=== PATIENT | female | born 1960 | race Caucasian/White ===

== ENCOUNTER 2019-07-08 16:23 | Inpatient (IN) | payer MEDICAID, MEDICARE ==
[2019-07-08] MEDS ORDERED: Lactated Ringers 1000 ML Bag* 1,000 ML IV ONE (19:23)
--- NOTE | 2019-07-08 19:31 | HP ---
History of Present Illness - History of Present Illness Reason for Visit: Sepsis History of Present Illness: 58 yo F who was recently diagnosed with UTI 2 weeks ago and put on antibiotics ( she can't remember the name) presented to [facility] today for progressive dizziness, lightheadedness, generalized weakness, nausea and diarrhea. She states that she feels like she did the last time she had Clostridium difficile colitis. At [facility] ED she was tachycardic to 113 and hypotensive to 70/38. She was bolused 3.7L IVF. Physical exam notable for moderate distress, tachycardia and generalized abdominal tenderness to palpation. CT Abdomen showed bibasilar infiltrates and no intraabdominal acute findings. Started on Rocephin and Azithromycin. Lactic acid 4.3, improving to 3.0. Cr 2.4. LFTs mildly elevated. WBC 17.9. UA negative. Transferred to [facility] for further care. - Past Medical History Gastrointestinal: Constipation, GERD, Irritable bowel disease, Other - Abdominal pain, anal fissure, C Diff colitis Psych: Anxiety, Schizophrenia, Other - PTSD Musculoskeletal: Chronic low back pain Renal/: Other - urinary retention Endocrine: Other - Thyroid cyst - Past Surgical History Past Surgical History: Appendectomy, Cholecystectomy, Hysterectomy, Other - Lumbar laminectomy, Bladder sling, lipoma excision - Past Family History Family History: Cancer, Other - COPD - Past Social History Smoke: 1 pack per day Alcohol: None Drugs: None - Health Maintenance Health Maintenance: Mammogram, Colonoscopy Review of Systems - Medications/Allergies Medications: Current Medications Lactated Ringer's (Lactated Ringers 1000 Ml Bag*) 1,000 mls @ 80 mls/hr IV ONCE ONE Stop: 07/09/19 07:52 Exam - Exam Vital Signs: HR 106. BP 87/68. RR 11. SpO2 96 General: Alert, Oriented x3, No acute distress HEENT: Atraumatic, PERRLA, EOMI Lungs: Clear to auscultation, Normal air movement Cardiovascular: Regular rate, Normal S1, Normal S2, No murmurs Abdomen: Soft, No tenderness Extremities: No cyanosis, No edema Neurological: Normal gait, Normal speech Psych/Mental Status: Mental status NL, Mood NL Assessment/Plan - Assessment/Plan Assessment: 58 yo F transferred from [facility] with sepsis associated hypotension, bilateral infiltrates on CXR concerning for pneumonia and nausea and diarrhea. Plan: Hospital Diagnoses: #1: Sepsis associated hypotension #2: Bilateral community acquired pneumonia #3: Lactic acidosis #4: Gastroenteritis Cardiovascular: (1) Sepsis associated hypotension; (2) Sinus tachycardia -- HR 104-106 -- SBP 87-96 -- Telemetry -- IVF hydration Home meds: None Pulmonary: (1) bilateral community acquired pneumonia -- RR 11-22 -- sats 93-96 -- CXR: left lower lobe infiltrate and effusion -- CT chest: bibasilar infiltrates consistent with pneumonia -- abx as bellow Home meds: None Gastrointestinal: (1) Acute gastroenteritis vs colitis; (2) Mild elevations in LFTs; (3) hx of GERD; (4) chronic constipation; (5) hx of CDiff colitis -- LFTs Tbili 0.7 ALK 119, follow trend AST 57, follow trend ALT 65, follow trend -- amylase 37 -- diet: general -- bowel regimen: none -- ulcer prophylaxis: not indicated at this time -- stool and CDiff cultures ordered Home meds: None Endocrine: (1) hx of thyroid cyst -- monitor BGs Home meds: None Renal: (1) Prerenal azotemia -- UOP: not yet recorded -- Cr 2.4, hydrating, follow trend -- Lytes Na 140 K 4.1 Ca 8.9 Mag ordered with AM Labs Phos ordered with AM labs -- IVF: LR @ 80 ml/hr -- received 4L at [facility] and 1L from EMS Home meds: None Infectious disease: (1) Sepsis; (2) bilateral community acquired pneumonia; (3 ) Acute gastroenteritis vs colitis; (4) hx of CDiff colitis -- Tmax pending -- WBC 17.19 -- Micro 07/08 blood ordered UA negative sputum ordered stool ordered CDiff ordered flu negative MRSA ordered -- ABX Rocephin Azithromycin Home meds: None Neurologic: (1) Chronic schizophrenia; (2) Chronic back pain; (3) PTSD -- Resume home meds -- Melatonin for sleep Home meds: Cyclobenzaprine, Klonopin, Gabapentin, Benadryl Hematological: No acute issues -- Hgb 15.5 -- Plt 248 -- Coags INR 1.02 PTT 25.2 -- DVT prophylaxis: SQ Heparin Home meds: None Metabolic: (1) Lactic acidosis -- Lactic acid 3.0 from 4.3, hydrating, follow trend Home meds: None Other: No acute issues Home meds: None Deep vein thrombosis prophylaxis: SQ Heparin Dietary: not indicated at this time Condition: serious Prognosis: good Code status: full Disposition: admit to ICU Cumulative time spent in the care of this patient (excluding any procedure time) : at least 50 minutes. Patient care included clinical interview (with patient and/or family), bedside exam of the patient, review of labs, x-rays, and other ancillary data, coordination of (respiratory, nursing care, review of patient's records, discussion regarding patients management with involved consultants, primary physician, pharmacists, and other healthcare personnel (dietary, case management , physical/occupational therapy etc.)
[2019-07-08] MEDS: Gabapentin CAP(*) 300 MG PO SCH (21:35)
[2019-07-08] MEDS: clonazePAM TAB(*) 1 MG PO SCH (21:35)
[2019-07-08] MEDS: Melatonin 3 MG TAB PO SCH (21:35)
[2019-07-08] MEDS: Heparin VIAL(*) 5000 UNITS/ML VIAL (FIVE THOUSAND) SUBCUT SCH (21:35)
[2019-07-08] MEDS: Cyclobenzaprine TAB* 10 MG PO PRN (21:35)
[2019-07-08 22:15] LABS: Urine Appearance Cloudy; Urine Bilirubin Negative (Negative); Urine Blood Negative (Negative); Urine Color Yellow; Urine Glucose Negative (Negative); Urine Ketones Negative (Negative); Urine Nitrite Negative (Negative); Urine Protein Negative (Negative); Urine Specific Gravity 1.015 (1.010-1.030); Urine Urobilinogen Negative (Negative)
[2019-07-09] MEDS: Heparin VIAL(*) 5000 UNITS/ML VIAL (FIVE THOUSAND) SUBCUT SCH ×3 (06:07→22:35)
[2019-07-09 06:36] LABS: Hematocrit 39 % (35-47); Hemoglobin 13.2 g/dL (12.0-16.0); Mean Corpuscular HGB Conc 34 g/dL (31-36); Mean Corpuscular Hemoglobin 32 pg (27-31); Mean Corpuscular Volume 96 fL (80-97); Platelet Count 173 10^3/uL (150-450); Red Cell Distribution Width 14 % (10-15); White Blood Count 13.1 10^3/uL (3.5-10.8)
[2019-07-09 06:54] LABS: ALT 40 U/L (7-52); Albumin 2.7 g/dL (3.2-5.2); Albumin/Globulin Ratio 1.1 (1-3); Alkaline Phosphatase 91 U/L (34-104); BUN/Creatinine Ratio 19.6 (8-20); Blood Urea Nitrogen 22 mg/dL (6-24); CO2 Carbon Dioxide 21 mmol/L (22-32); Calcium 7.8 mg/dL (8.6-10.3); EGFR African American 60.9 (>60); EGFR Non-African American 50.3 (>60); Globulin 2.4 g/dL (2-4); Glucose 71 mg/dL (70-100); Phosphorus 2.9 mg/dL (2.5-5.0); Sodium 141 mmol/L (135-145); Total Protein 5.1 g/dL (6.4-8.9)
[2019-07-09 06:59] LABS: Chloride 114 mmol/L (101-111)
[2019-07-09 07:01] LABS: Anion Gap 6 mmol/L (2-11)
[2019-07-09] MEDS ORDERED: Ibuprofen TAB* 200 MG PO ONE (07:06)
[2019-07-09 08:43] LABS: Magnesium 1.6 mg/dL (1.9-2.7); Potassium Redraw 4.1 mmol/L (3.5-5.0)
[2019-07-09 09:10] LABS: Potassium 3.9 mmol/L (3.5-5.0)
[2019-07-09] MEDS: Azithromycin 500 mg/250 ml NS 500 MG/250 ML BAG IVPB SCH (09:35)
[2019-07-09] MEDS: Gabapentin CAP(*) 300 MG PO SCH ×2 (09:36→21:25)
[2019-07-09] MEDS: Cyclobenzaprine TAB* 10 MG PO PRN (09:36)
[2019-07-09] MEDS: clonazePAM TAB(*) 0.5 MG PO SCH (09:36)
[2019-07-09] MEDS: cefTRIAXone(*) 1 GM in NS 0.9% 50 ML* 50 ML IVPB SCH (10:36)
[2019-07-09] MEDS ORDERED: NS 0.9% 1000 ML** 1,000 ML IV ONE (12:24)
--- NOTE | 2019-07-09 12:27 | PN ---
Date of Service: 07/09/19 Critical Care Services: c.difficile + and with diarrhea last night --hx of c.difficile 2 years ago lacatates increasing Vital Signs: Temp Pulse Resp BP SpO2 FiO2 97.5 F 98 29 85/69 98 07/09/19 11:44 07/09/19 10:30 07/09/19 10:30 07/09/19 10:30 07/09/19 10:30 Physical Exam: Gen: NAD. AO times 3, Heart: RRR, Lungs: Decreased Breath sounds, GI: +BSs, soft, NTP. No rebound or guarding. Neuro: No focal deficits. Extremities: No edema. Fluid Balance (Past 24 Hours): I= O= Net Intake & Output 07/07/19 07/08/19 07/09/19 07/10/19 06:59 06:59 06:59 06:59 Intake Total 1286 120 Output Total 1205 340 Balance 81 -220 Weight 110 lb Intake: IV Fluids 1286 LR 1286 Oral 0 120 Output: Urine 200 Dor[place] 705 140 Liquid Stool 500 Other: Date of Last Bowel 07/09/19 07/09/19 Movement # Bowel Movements 3 Estimated Stool Amount Large Large Labs: Laboratory Results - last 24 hr 07/08/19 07/08/19 07/09/19 22:01 22:01 06:14 WBC 13.1 H RBC 4.10 Hgb 13.2 Hct 39 MCV 96 MCH 32 H MCHC 34 RDW 14 Plt Count 173 MPV 9.0 Sodium Potassium Chloride Carbon Dioxide Anion Gap BUN Creatinine Est GFR ( Amer) Est GFR (Non-Af Amer) BUN/Creatinine Ratio Glucose Lactic Acid 2.1 H* Calcium Phosphorus Magnesium Total Bilirubin AST ALT Alkaline Phosphatase Total Protein Albumin Globulin Albumin/Globulin Ratio Urine Color Yellow Urine Appearance Cloudy Urine pH 5.0 Ur Specific Yancey 1.015 Urine Protein Negative Urine Ketones Negative Urine Blood Negative Urine Nitrate Negative Urine Bilirubin Negative Urine Urobilinogen Negative Ur Leukocyte Esterase Negative Urine Glucose Negative 07/09/19 07/09/19 07/09/19 06:14 06:14 07:37 WBC RBC Hgb Hct MCV MCH MCHC RDW Plt Count MPV Sodium 141 Potassium TNP TNP Chloride 114 H Carbon Dioxide 21 L Anion Gap 6 BUN 22 Creatinine 1.12 H Est GFR ( Amer) 60.9 Est GFR (Non-Af Amer) 50.3 BUN/Creatinine Ratio 19.6 Glucose 71 Lactic Acid 3.7 H* Calcium 7.8 L Phosphorus 2.9 Magnesium TNP TNP Total Bilirubin 0.30 AST TNP TNP ALT 40 Alkaline Phosphatase 91 Total Protein 5.1 L Albumin 2.7 L Globulin 2.4 Albumin/Globulin Ratio 1.1 Urine Color Urine Appearance Urine pH Ur Specific Yancey Urine Protein Urine Ketones Urine Blood Urine Nitrate Urine Bilirubin Urine Urobilinogen Ur Leukocyte Esterase Urine Glucose 07/09/19 07/09/19 08:28 08:54 WBC RBC Hgb Hct MCV MCH MCHC RDW Plt Count MPV Sodium Potassium 4.1 3.9 Chloride Carbon Dioxide Anion Gap BUN Creatinine Est GFR ( Amer) Est GFR (Non-Af Amer) BUN/Creatinine Ratio Glucose Lactic Acid Calcium Phosphorus Magnesium 1.6 L Total Bilirubin AST 45 H 47 H ALT Alkaline Phosphatase Total Protein Albumin Globulin Albumin/Globulin Ratio Urine Color Urine Appearance Urine pH Ur Specific Yancey Urine Protein Urine Ketones Urine Blood Urine Nitrate Urine Bilirubin Urine Urobilinogen Ur Leukocyte Esterase Urine Glucose Impression: c.difficile dehydration PNA? Plan: add Vanco and Flagyl for C.Difficile increase IVF"s, keep + balance f/u CXR for PNA. May be able to decrease PNA ABX's Critical Care Time: 36
[2019-07-09] MEDS: metroNIDAZOLE * 500 MG TABLET PO SCH ×2 (12:44→21:26)
[2019-07-09] MEDS ORDERED: NS 0.9% 500 ML* 500 ML IV ONE (13:00)
[2019-07-09] MEDS: Vancomycin CAP* 250 MG CAP PO SCH ×3 (13:19→21:25)
[2019-07-09] MEDS: Lactated Ringers 1000 ML Bag* 1,000 ML IV SCH ×2 (13:55→19:27)
[2019-07-09] MEDS: Ondansetron INJ* 2 MG/ML VIAL IV SCH ×2 (19:03→21:28)
[2019-07-09] MEDS: clonazePAM TAB(*) 1 MG PO SCH (21:25)
[2019-07-09] MEDS: Melatonin 3 MG TAB PO SCH (21:25)
[2019-07-09] MEDS: Metoclopramide IV* 5 MG/ML 2 ML VIAL IV PRN (23:58)
[2019-07-10] MEDS: Ondansetron INJ* 2 MG/ML VIAL IV SCH ×6 (01:57→20:28)
[2019-07-10] MEDS: Lactated Ringers 1000 ML Bag* 1,000 ML IV SCH ×3 (03:06→20:30)
[2019-07-10 05:09] LABS: Hematocrit 37 % (35-47); Hemoglobin 12.3 g/dL (12.0-16.0); Mean Corpuscular HGB Conc 33 g/dL (31-36); Mean Corpuscular Hemoglobin 32 pg (27-31); Mean Corpuscular Volume 97 fL (80-97); Mean Platelet Volume 8.8 fL (7.4-10.4); Platelet Count 119 10^3/uL (150-450); Red Blood Count 3.84 10^6 /uL (3.70-4.87); Red Cell Distribution Width 14 % (10-15); White Blood Count 10.7 10^3/uL (3.5-10.8)
[2019-07-10] MEDS: metroNIDAZOLE * 500 MG TABLET PO SCH ×3 (05:21→21:32)
[2019-07-10 05:26] LABS: Albumin 2.8 g/dL (3.2-5.2); Albumin/Globulin Ratio 1.1 (1-3); BUN/Creatinine Ratio 16.2 (8-20); Calcium 7.9 mg/dL (8.6-10.3); EGFR African American 98.2 (>60); EGFR Non-African American 81.2 (>60); Globulin 2.5 g/dL (2-4); Magnesium 1.7 mg/dL (1.9-2.7); Phosphorus 1.7 mg/dL (2.5-5.0); Total Bilirubin 0.3 mg/dL (0.2-1.0); Total Protein 5.3 g/dL (6.4-8.9)
[2019-07-10 05:34] LABS: Potassium 3.4 mmol/L (3.5-5.0)
[2019-07-10] MEDS: Heparin VIAL(*) 5000 UNITS/ML VIAL (FIVE THOUSAND) SUBCUT SCH ×3 (06:17→21:32)
[2019-07-10] MEDS: Metoclopramide IV* 5 MG/ML 2 ML VIAL IV PRN (06:18)
[2019-07-10] MEDS: clonazePAM TAB(*) 0.5 MG PO SCH (07:25)
[2019-07-10] MEDS: Gabapentin CAP(*) 300 MG PO SCH ×2 (07:25→20:32)
[2019-07-10] MEDS: Vancomycin CAP* 250 MG CAP PO SCH ×4 (07:25→20:33)
[2019-07-10] MEDS: Azithromycin 500 mg/250 ml NS 500 MG/250 ML BAG IVPB SCH (07:42)
[2019-07-10] MEDS: cefTRIAXone(*) 1 GM in NS 0.9% 50 ML* 50 ML IVPB SCH (11:15)
[2019-07-10] MEDS ORDERED: Magnesium Sulfate 2 GM IV* 2 GM/50 ML BAG IVPB ONE (11:49)
--- NOTE | 2019-07-10 11:57 | PN ---
Date of Service: 07/10/19 Critical Care Services: still with diarrhea. Flagyl and Nehemiaso D#2 Hemodynamically stable Low K, Phos, and Mg Vital Signs: Temp Pulse Resp BP SpO2 FiO2 98.7 F 90 23 144/95 94 07/10/19 07:52 07/10/19 11:01 07/10/19 11:01 07/10/19 11:01 07/10/19 11:01 Physical Exam: Gen: NAD. AO times 3, Heart: RRR, Lungs: Decreased Breath sounds, GI: +BSs, soft, NTP. No rebound or guarding. Neuro: No focal deficits. Extremities: No edema. Fluid Balance (Past 24 Hours): I= O= Net Intake & Output 07/08/19 07/09/19 07/10/19 07/11/19 06:59 06:59 06:59 06:59 Intake Total 1286 5656 50 Output Total 1205 2628 675 Balance 81 3028 -625 Weight 110 lb 141 lb 8.588 oz Intake: IV Fluids 1286 5357 LR 1286 3773 NS 1584 Medicated IV 79 cefepime 79 Oral 0 220 50 Output: Urine 200 Dorado 705 1943 675 Straight Cath 200 Liquid Stool 500 275 Emesis 10 Other: Date of Last Bowel 07/09/19 07/09/19 Movement # Bowel Movements 3 2 1 Estimated Stool Amount Large Small Small Labs: Laboratory Results - last 24 hr 07/09/19 07/10/19 07/10/19 10:58 04:54 05:03 WBC 10.7 RBC 3.84 Hgb 12.3 Hct 37 MCV 97 MCH 32 H MCHC 33 RDW 14 Plt Count 119 L MPV 8.8 Sodium 138 Potassium 3.4 L Chloride 113 H Carbon Dioxide 19 L Anion Gap 6 BUN 12 Creatinine 0.74 Est GFR ( Amer) 98.2 Est GFR (Non-Af Amer) 81.2 BUN/Creatinine Ratio 16.2 Glucose 60 L POC Glucose (mg/dL) 84 Lactic Acid Calcium 7.9 L Phosphorus 1.7 L Magnesium 1.7 L Total Bilirubin 0.30 AST 40 H ALT 34 Alkaline Phosphatase 92 Total Protein 5.3 L Albumin 2.8 L Globulin 2.5 Albumin/Globulin Ratio 1.1 07/10/19 10:00 WBC RBC Hgb Hct MCV MCH MCHC RDW Plt Count MPV Sodium Potassium Chloride Carbon Dioxide Anion Gap BUN Creatinine Est GFR ( Amer) Est GFR (Non-Af Amer) BUN/Creatinine Ratio Glucose POC Glucose (mg/dL) Lactic Acid 1.1 Calcium Phosphorus Magnesium Total Bilirubin AST ALT Alkaline Phosphatase Total Protein Albumin Globulin Albumin/Globulin Ratio Impression: c.difficile dehydration Plan: continue vanco and flagyl does not need ceftriaxone and azithromycin, CXR clear replete lytes can transfer to floor Critical Care Time: 44
[2019-07-10] MEDS ORDERED: Potassium Phosphate IV* 15 MMOLE in NS 0.9% 250 ML* 250 ML IVPB ONE (13:00)
[2019-07-10] MEDS ORDERED: Potassium Acid Phosphate TAB* 500 MG PO SCH (13:00)
[2019-07-10] MEDS: clonazePAM TAB(*) 1 MG PO SCH (20:32)
[2019-07-10] MEDS: Melatonin 3 MG TAB PO SCH (20:33)
[2019-07-11] MEDS: Ondansetron INJ* 2 MG/ML VIAL IV SCH ×3 (00:52→09:27)
[2019-07-11] MEDS: Lactated Ringers 1000 ML Bag* 1,000 ML IV SCH (05:05)
[2019-07-11] MEDS: metroNIDAZOLE * 500 MG TABLET PO SCH (05:25)
[2019-07-11] MEDS: Heparin VIAL(*) 5000 UNITS/ML VIAL (FIVE THOUSAND) SUBCUT SCH (05:25)
[2019-07-11 07:59] LABS: Hematocrit 41 % (35-47); Hemoglobin 13.6 g/dL (12.0-16.0); Mean Corpuscular HGB Conc 33 g/dL (31-36); Mean Corpuscular Hemoglobin 32 pg (27-31); Mean Corpuscular Volume 96 fL (80-97); Mean Platelet Volume 9.1 fL (7.4-10.4); Platelet Count 145 10^3/uL (150-450); Red Cell Distribution Width 14 % (10-15); White Blood Count 8.6 10^3/uL (3.5-10.8)
[2019-07-11 08:03] LABS: Albumin 3.3 g/dL (3.2-5.2); CO2 Carbon Dioxide 21 mmol/L (22-32); Calcium 8.4 mg/dL (8.6-10.3); Chloride 110 mmol/L (101-111); Magnesium 1.9 mg/dL (1.9-2.7); Sodium 140 mmol/L (135-145)
[2019-07-11 08:09] LABS: ALT 27 U/L (7-52); Albumin/Globulin Ratio 1.2 (1-3); Alkaline Phosphatase 102 U/L (34-104); Blood Urea Nitrogen 5 mg/dL (6-24); EGFR Non-African American 85.2 (>60); Globulin 2.8 g/dL (2-4); Glucose 77 mg/dL (70-100); Phosphorus 2.1 mg/dL (2.5-5.0); Total Protein 6.1 g/dL (6.4-8.9)
[2019-07-11 08:13] LABS: Anion Gap 9 mmol/L (2-11)
[2019-07-11] MEDS ORDERED: Acetaminophen TAB* 325 MG PO PRN (09:18)
[2019-07-11] MEDS: Gabapentin CAP(*) 300 MG PO SCH (09:27)
[2019-07-11] MEDS: clonazePAM TAB(*) 0.5 MG PO SCH (09:28)
[2019-07-11] MEDS: Vancomycin CAP* 250 MG CAP PO SCH (09:29)
[2019-07-11] MEDS ORDERED: Carbamide Peroxide 6.5% OTIC* 15 ML BTL RIGHT EAR SCH (10:00)
[2019-07-11 11:32] VITALS: BP 121/55
[2019-07-11] MEDS ORDERED: Vancomycin CAP* 125 MG CAP PO SCH (13:00)
--- NOTE | 2019-07-11 15:44 | DS ---
DISCHARGE SUMMARY: DATE OF ADMISSION: 07/08/19 DATE OF DISCHARGE: 07/11/19 PRIMARY DIAGNOSES: 1. Clostridium difficile colitis complicated by severe sepsis. 2. History of recent urinary tract infection, on antibiotics. SECONDARY DIAGNOSES: 1. Anxiety. 2. Schizophrenia. 3. Gastroesophageal reflux disease. 4. Irritable bowel syndrome. DISCHARGE MEDICATIONS: 1. Vancomycin 125 mg 4 times a day for 12 more days. 2. Clonazepam 0.5 in the morning, 1.5 at night. 3. Gabapentin 300 mg twice a day. 4. Cyclobenzaprine 10 mg b.i.d. as needed for muscle spasm. 5. Debrox drops for right ear. HISTORY OF PRESENT ILLNESS/HOSPITAL COURSE: Ms. Alcaraz is a 58-year-old woman with a history of anxiety, schizophrenia, constipation, GERD, IBS, chronic low back pain, who is presenting as a transfer from [place] for severe sepsis. She reports recently being diagnosed with a UTI 2 weeks prior to presentation. She was given antibiotics, but cannot remember which name. On the day of presentation at [facility], she began experiencing progressive dizziness, lightheadedness, generalized weakness , nausea, and diarrhea. She states that this is how she felt the last time she had Clostridium difficile colitis over 1 year ago. At [facility] ER, she was tachycardic to 113, hypotensive to 70/38. She was given 3.7 L of IV fluids. Her physical exam was notable for mild distress, tachycardia, and generalized abdominal tenderness. Her CT abdomen showed bibasilar infiltrates without intraabdominal acute findings. She was given ceftriaxone and azithromycin for possible community-acquired pneumonia. Her lactic acid resulted at 4.3 and decreased to 3 after fluids. Her creatinine was 2.4. Her LFTs were mildly elevated. Her WBC was 17.9 and her urinalysis was negative. She was transferred to [facility] for further care. At [facility], she was placed in the ICU on telemetry and given IV fluid hydration. Her oxygen saturation was in the 90s on room air. She had a C. diff culture sent upon arrival. She was continued on her home medications including Klonopin, cyclobenzaprine, gabapentin. Her lactic acidosis resolved. Her C. diff test resulted positive. Given her lack of respiratory symptoms and clear chest x-ray on repeat at our institution, her ceftriaxone and azithromycin were discontinued given low suspicion for pneumonia. She was started on oral vancomycin on 07/09/19 and experienced significant improvement in her diarrhea and abdominal pain. By the next day, her leukocytosis had resolved. Her creatinine decreased from 1.12 to 0.71. The patient reported significant improvement in her abdominal pain and she was transferred to the general medical floor. She had no acute events overnight and by the day of discharge, the patient reports only very small semi-formed stool in the morning. She felt back to her baseline and was ready to return home. REVIEW OF SYSTEMS: Otherwise, a complete 10-point review of systems was performed and negative. PHYSICAL EXAMINATION: Afebrile, heart rate 79, blood pressure 121/55, respiratory rate 23, oxygen saturation 95% on room air. In general, she is a well-appearing woman, in no acute distress, who is alert and interactive, nontoxic-appearing. Neck: Supple. No JVD. Heart: Regular rate and rhythm. No murmurs, gallops, or rubs. Abdomen: Soft, nontender, nondistended. Extremities: Warm and well perfused without evidence of edema. Neuro: A and O x3. DIAGNOSTIC STUDIES/LAB DATA: n the day of discharge, CBC notable for platelets 145 with unknown baseline. BMP with creatinine 0.71. UA clear. Stool occult blood positive. C. diff PCR positive. Chest x-ray: Minimal linear atelectasis of the left lung base. DISCHARGE PLAN: The patient will be discharged to follow up with her outpatient providers in [facility]. Her home medications are to be continued as before except she should not take any remaining antibiotics that were prescribed for her prior UTI. Her only new medication is oral vancomycin, which she should take 4 times a day for 12 more days. She was informed of positive occult blood in her stool testing and recommended to continue with age appropriate cancer screening as an outpatient. The patient was educated on return precautions, which include, but are not limited to recurrence of weakness, lightheadedness, or diarrhea. She should seek care immediately if these also occur after the end of her course of antibiotics. She should eat a healthy diet, low in processed foods and is encouraged to eat yogurt while she is on antibiotics. She should resume activity as tolerated. DISPOSITION: Home. CONDITION: Improved. TIME SPENT: Approximately 60 minutes was spent on discharge of this patient, more than half of which was spent with care coordination at bedside for interview and exam. [id number]/CPS #: [id number] REBEL
[2019-07-11] MEDS ORDERED: Enoxaparin(*) 40 MG/0.4 ML SYR SUBCUT SCH (21:00)
== END 2019-07-11 11:30 | disposition home or self-care (01) | DRG 871 ==
LOC: ICU 19:19 → MED 07-10 16:49
PROVIDERS: ADMIT Internal Medicine; ATTEND Internal Medicine
DX: A41.9 Sepsis, unspecified organism (principal); J18.9 Pneumonia, unspecified organism; A04.72 Enterocolitis due to Clostridium difficile, not specified as recurrent; J98.11 Atelectasis; F41.9 Anxiety disorder, unspecified; F20.9 Schizophrenia, unspecified; K21.9 Gastro-esophageal reflux disease without esophagitis; K58.9 Irritable bowel syndrome, unspecified; M54.5 Low back pain; I95.9 Hypotension, unspecified; F43.10 Post-traumatic stress disorder, unspecified; F17.210 Nicotine dependence, cigarettes, uncomplicated; R33.9 Retention of urine, unspecified; R79.89 Other specified abnormal findings of blood chemistry; K59.09 Other constipation; Z82.5 Family history of asthma and other chronic lower respiratory diseases; Z80.9 Family history of malignant neoplasm, unspecified; Z79.899 Other long term (current) drug therapy
CPT/HCPCS: 36415; 71045; 80053; 81003; 82272; 83605; 83735; 84100; 84132; 84450; 85027; 87040; 87045; 87046; 87070; 87205; 87493; 87641; 87899; A9270-GY; J0456; J0696; J1644; J2405; J2765; J3475

== ENCOUNTER 2021-06-16 18:51 | Observation (INO) ==
[2021-06-16] MEDS ORDERED: Heparin DRIP 25,000 UNITS BAG 25,000 UNITS/500 ML BAG IV SCH (19:30)
[2021-06-16] MEDS ORDERED: Heparin 5000 UNITS/ML 1 mL VIAL IV SCH (20:00)
[2021-06-16 20:03] LABS: Troponin I 0.01 ng/mL (<0.03)
[2021-06-16 20:51] LABS: ABS Monocytes 0.4 10^3/ul (0-0.8); ABS Neutrophils 2.5 10^3/ul (1.5-7.7); Eosinophil % 0.7 %; Hematocrit 42 % (35-47); Hemoglobin 14.6 g/dL (12.0-16.0); Lymphocyte % 41.4 %; Mean Corpuscular HGB Conc 34 g/dL (31-36); Mean Corpuscular Hemoglobin 33 pg (27-31); Mean Corpuscular Volume 96 fL (80-97); Mean Platelet Volume 8.1 fL (7.4-10.4); Nucleated Red Blood Cells % 0.1; Platelet Count 218 10^3/uL (150-450); Red Cell Distribution Width 15 % (10-15); White Blood Count 4.9 10^3/uL (3.5-10.8)
[2021-06-16] MEDS ORDERED: Ondansetron 4 mg VIAL 2 MG/ML 2 ml VIAL IV PRN (22:14)
[2021-06-16] MEDS ORDERED: Nitro 2% OINT (Nitroglycerin) 1 INCH/PAK TOPICAL ONE (22:21)
[2021-06-16] MEDS ORDERED: Nitro 2% OINT (Nitroglycerin) 1 INCH/PAK ONE (22:23)
[2021-06-16] MEDS ORDERED: Isosorbide Mononit ER 30mg TAB PO SCH (23:45)
[2021-06-16] MEDS ORDERED: NS 0.9% 1000 ml BAG 1,000 ML IV SCH (23:45)
[2021-06-16] MEDS ORDERED: diPHENhydraMINE 25 mg TAB PO SCH (23:45)
[2021-06-16] MEDS ORDERED: Dextrose 50% Syringe 50 ml 25 GM/50 ML SYRINGE IV PUSH PRN (23:49)
[2021-06-17 00:53] LABS: Rapid COVID-19 Molecular Undetected (Undetected)
[2021-06-17 06:09] LABS: ABS Lymphocytes 1.8 10^3/ul (1.0-4.8); ABS Monocytes 0.3 10^3/ul (0-0.8); ABS Neutrophils 3.3 10^3/ul (1.5-7.7); Eosinophil % 0.7 %; Hematocrit 41 % (35-47); Hemoglobin 13.8 g/dL (12.0-16.0); Lymphocyte % 32.7 %; Mean Corpuscular HGB Conc 34 g/dL (31-36); Mean Corpuscular Hemoglobin 33 pg (27-31); Mean Corpuscular Volume 96 fL (80-97); Mean Platelet Volume 8.2 fL (7.4-10.4); Platelet Count 212 10^3/uL (150-450); Red Blood Count 4.25 10^6 /uL (3.70-4.87); Red Cell Distribution Width 15 % (10-15); White Blood Count 5.4 10^3/uL (3.5-10.8)
[2021-06-17 06:35] LABS: Albumin 3.7 g/dL (3.2-5.2); Albumin/Globulin Ratio 1.3 (1-3); Calcium 8.9 mg/dL (8.6-10.3); Globulin 2.9 g/dL (2-4); Magnesium 2.2 mg/dL (1.9-2.7); Potassium 4.2 mmol/L (3.5-5.0); Total Bilirubin 0.4 mg/dL (0.2-1.0); Total Protein 6.6 g/dL (6.4-8.9)
[2021-06-17] MEDS ORDERED: Perflutren Lipid Microsphere 3 ML VIAL ONE (14:39)
[2021-06-17] MEDS ORDERED: Regadenoson 0.4 MG/5 ML SYRINGE ONE (15:16)
[2021-06-17 16:02] VITALS: BP 137/62
[2021-06-18] MEDS ORDERED: Pneumococcal Vac 23-Polyvalent IM ONE (09:00)
[2021-06-18] MEDS ORDERED: Meloxicam 15 mg TAB (NF) PO SCH (09:00)
[2021-06-18] MEDS ORDERED: Cholecalciferol (VIT D3) 1,000 unit TAB PO SCH (09:00)
== END 2021-06-17 18:27 | disposition home or self-care (01) ==
LOC: MEDTELE 18:51 → ED 18:51 → SUATTDRO 22:10 → MEDTELE 06-17 02:10
PROVIDERS: ADMIT Internal Medicine; ATTEND Hospitalist

== ENCOUNTER 2023-04-16 20:51 | Observation (INO) ==
[2023-04-16] MEDS ORDERED: Enoxaparin 40 MG/0.4 ML SYR SUBCUT SCH (23:45)
[2023-04-16] MEDS ORDERED: Dextrose 50% Syringe 50 ml 25 GM/50 ML SYRINGE IV PUSH PRN (23:45)
[2023-04-16] MEDS ORDERED: Albuterol/Ipratropium NEB.SOL (2.5/0.5 MG) 3 ML NEB.SOLN INH PRN (23:45)
[2023-04-17 00:18] LABS: Hematocrit 38.7 % (35-45); Hemoglobin 13.1 g/dL (11.5-14.3); Mean Corpuscular Hgb Conc 33.8 g/dL (31-36); Mean Corpuscular Volume 91.6 fL (80-97); Mean Platelet Volume 7.5 fL (7.5-11.2); Platelet Count 309 10^3/uL (150-450); Red Blood Count 4.22 10^6/uL (3.63-4.92); Red Cell Distribution Width 14.8 % (12-17); White Blood Count 8.1 10^3/uL (3.8-11.8)
[2023-04-17 00:36] LABS: Albumin 3.9 g/dL (3.2-5.2); Albumin/Globulin Ratio 1.3 (1-3); Calcium 9.2 mg/dL (8.6-10.3); Creatinine, Serum 0.75 mg/dL (0.51-0.95); Globulin 3.1 g/dL (2-4); Potassium 4.3 mmol/L (3.5-5.0); Total Bilirubin 0.3 mg/dL (0.2-1.0); eGFR CKD-EPI 91.1 (>60)
[2023-04-17 01:43] LABS: High Sensitivity Troponin 1 Hr 3 pg/mL (<15)
[2023-04-17] MEDS ORDERED: Nicotine Lozenge mini 2 MG LOZNG.MINI MT PRN (03:59)
[2023-04-17 07:18] LABS: ABS Lymphocytes 1.3 10^3/uL (1.0-4.8); ABS Monocytes 0.5 10^3/uL (0.0-0.9); ABS Neutrophils 10.4 10^3/uL (1.5-7.6); ABS Nucleated RBC 0.01 10^3/ul; Hematocrit 39.1 % (35-45); Hemoglobin 13.2 g/dL (11.5-14.3); Lymphocyte % 10.6 %; Mean Corpuscular Hgb Conc 33.7 g/dL (31-36); Mean Corpuscular Volume 91.9 fL (80-97); Mean Platelet Volume 7.7 fL (7.5-11.2); Nucleated Red Blood Cells % 0.1 /100 WBC (0.0-0.4); Platelet Count 325 10^3/uL (150-450); Red Blood Count 4.25 10^6/uL (3.63-4.92); White Blood Count 12.2 10^3/uL (3.8-11.8)
[2023-04-17 07:52] LABS: Albumin 3.7 g/dL (3.2-5.2); Albumin/Globulin Ratio 1.1 (1-3); Calcium 9.3 mg/dL (8.6-10.3); Creatinine, Serum 0.88 mg/dL (0.51-0.95); Globulin 3.4 g/dL (2-4); Magnesium 2.2 mg/dL (1.9-2.7); Potassium 4.5 mmol/L (3.5-5.0); Total Bilirubin 0.3 mg/dL (0.2-1.0); Total Protein 7.1 g/dL (6.4-8.9); eGFR CKD-EPI 75.2 (>60)
[2023-04-17] MEDS ORDERED: Cholecalciferol (VIT D3) 1,000 unit TAB PO SCH (09:00)
[2023-04-17] MEDS ORDERED: Polyethylene Glycol 3350 17 GM PACKET PO SCH (09:00)
[2023-04-17] MEDS ORDERED: Insulin GLARGINE 100 un/ml 10 ml VIAL SUBCUT SCH (09:00)
[2023-04-17] MEDS ORDERED: Aminophylline 25 MG/ML VIAL IV ONE (12:07)
[2023-04-17] MEDS ORDERED: Regadenoson 0.4 MG/5 ML SYRINGE ONE (12:40)
[2023-04-17] MEDS ORDERED: Aminophylline 25 MG/ML VIAL ONE (12:40)
[2023-04-17 14:20] VITALS: BP 132/82
[2023-04-17] MEDS ORDERED: Isosorbide Mononit ER 30mg TAB PO SCH (21:00)
== END 2023-04-17 18:57 | disposition home or self-care (01) ==
LOC: EDHOLD 20:51 → ED 20:51 → SUATTDRO 23:30 → MEDTELE 04-17 00:39
PROVIDERS: ADMIT Student in an Organized Health Care Education/Training Program; ATTEND Internal Medicine